=== PATIENT | female | born 1935 | race Caucasian/White ===

== ENCOUNTER 2020-06-06 15:10 | Outpatient (NON) | payer MEDICARE, SELFPAY ==
[2020-06-06 15:32] LABS: CRP 0.9 mg/dL (0.0-0.9)
[2020-06-06 16:24] LABS: Erythrocyte Sedimentation Rate 22 mm/hr (0-30)
== END 2020-06-06 15:11 ==
PROVIDERS: Visit Provider Family Medicine
DX: Z48.812 Encounter for surgical aftercare following surgery on the circulatory system (principal); K75.81 Nonalcoholic steatohepatitis (NASH)
CPT/HCPCS: 36415; 85652; 86140